=== PATIENT | female | born 1965 | race Caucasian/White ===

== ENCOUNTER 2017-02-21 15:05 | Emergency (ER) | payer BC ==
--- NOTE | 2017-02-21 15:16 | UC ---
Respiratory Complaint HPI - HPI Summary HPI Summary: 51 year old female presents with cough, chest congestion, and shortness of breath. - History of Current Complaint Stated Complaint: SHORTNESS OF BREATH Time Seen by Provider: 02/21/17 15:16 Hx Obtained From: Patient Onset/Duration: Sudden Onset Timing: Constant Severity Initially: Moderate Severity Currently: Moderate Character: Cough: Nonproductive Aggravating Factors: Deep Breaths Alleviating Factors: Bronchodilator - Allergies/Home Medications Allergies/Adverse Reactions: Allergies Allergy/AdvReac Type Severity Reaction Status Date / Time Cephalexin [From Keflex] Allergy Severe Anaphylatic Verified 02/21/17 15:17 Shock Home Medications: Home Medications Baclofen TAB* [Lioresal TAB*] 10 mg PO TID PRN 02/21/17 [History Confirmed 02/21] Dextromethorphan Polistirex [Robitussin 12 Hour Cough] 30 mg PO BID PRN [History Confirmed 02/21/17] Gabapentin CAP(*) [Neurontin 100 mg CAP(*)] 100 mg PO SEE INSTRUCTIONS 02/21/17 [History Confirmed 02/21/17] HYDROcodone/ACETAMIN 5-325 MG* [[place]ales 5-325 TAB*] 1 tab PO Q6H PRN 02/21/17 [ History Confirmed 02/21/17] celeCOXIB CAP* [Celebrex CAP*] 100 mg PO DAILY 02/21/17 [History Confirmed 02/21] PMH/Surg Hx/FS Hx/Imm Hx Previously Healthy: Yes Review of Systems Constitutional: Negative Skin: Negative Eyes: Negative ENT: Sore Throat, Nasal Discharge, Sinus Congestion, Sinus Pain/Tenderness Respiratory: Shortness Of Breath, Cough Cardiovascular: Negative Gastrointestinal: Negative Genitourinary: Negative Motor: Negative Neurovascular: Negative Musculoskeletal: Negative Neurological: Negative Psychological: Negative All Other Systems Reviewed And Are Negative: Yes Physical Exam Triage Information Reviewed: Yes Eye Exam: Normal ENT: Positive: Pharyngeal erythema, Nasal congestion, Nasal drainage Dental Exam: Normal Neck exam: Normal Neck: Positive: 1 Respiratory Exam: Normal Respiratory: Positive: Rhonchi, Wheezing Cardiovascular Exam: Normal Abdominal Exam: Normal Musculoskeletal Exam: Normal Neurological Exam: Normal Psychological Exam: Normal Skin Exam: Normal Respiratory Course/Dx - Differential Dx/Diagnosis Provider Diagnoses: bronchitis. sinusitis Discharge - Discharge Plan Condition: Stable Disposition: HOME Prescriptions: Albuterol HFA INHALER* [Ventolin HFA Inhaler*] 1 puff INH Q6H PRN #1 mdi PRN Reason: Wheezing Azithromyxin REESE (NF) [Z-Reese (Zithromax) 250 mg tabs #6] 2 tab PO .TODAY, THEN 1 DAILY #6 tab guaiFENesin/CODIEN 100MG-10MG* [Robitussin AC 100Mg-10Mg*] 5 ml PO Q8H PRN #120 ml MDD 15 ML PRN Reason: Cough predniSONE TAB* [Deltasone TAB*] 40 mg PO DAILY #10 tab Patient Education Materials: Acute Cough (ED), Wheezing (ED) Referrals: Dalila Darden MD [Primary Care Provider] -
[2017-02-21 15:24] VITALS: BP 147/72
--- NOTE | 2017-02-21 16:01 | RAD ---
INDICATION: Shortness of breath. Requisition includes history of "spontaneous pneumothorax x4" COMPARISON: None TECHNIQUE: PA and lateral views of the chest were obtained. FINDINGS: The heart and mediastinum are normal in size and contour. The left lung is grossly clear in the AP view. There is density along the inferior lateral right chest wall and right hemidiaphragm including blunting of the right costophrenic angle. The right lung is otherwise adequately aerated. There is no definite pneumothorax. There appears to be surgical material along the medial aspect of the right lung apex. Visualized bones are normal for the patient's age. There is no radiographic evidence of free air beneath the diaphragm IMPRESSION: DENSITY OBSCURING THE INFERIOR RIGHT LUNG BASE DESCRIBED ABOVE WITHOUT PRIOR CHEST X-RAYS TO COMMENT ON CHRONICITY. ETIOLOGIES COULD INCLUDE CHANGES RELATED TO PRIOR SURGERY, PLEURAL THICKENING OF ANOTHER ETIOLOGY OR PLEURAL EFFUSION. THERE IS NO DEFINITE PNEUMOTHORAX SEEN.
[2017-02-21] MEDS ORDERED: Albuterol/Ipratropium NEB.SOL* Albuterol 2.5 MG/Ipratropium 0.5 MG 3 ML INH ONE (16:07)
[2017-02-21] MEDS ORDERED: predniSONE TAB* 20 MG PO ONE (16:08)
== END 2017-02-21 16:43 | disposition home or self-care (01) ==
LOC: UCCORT 15:05
DX: J40 Bronchitis, not specified as acute or chronic (principal); J32.9 Chronic sinusitis, unspecified; Z88.1 Allergy status to other antibiotic agents
CPT/HCPCS: 71020; 93005; 99202; A9270-GY; G0463; J7512

== ENCOUNTER 2018-08-13 14:08 | Emergency (ER) | payer BC, OTHER ==
[2018-08-13] MEDS ORDERED: Famotidine TAB* 20 MG PO ONE (14:49)
[2018-08-13 14:50] VITALS: BP 143/90
[2018-08-13] MEDS ORDERED: predniSONE TAB* 20 MG PO ONE (14:50)
--- NOTE | 2018-08-13 15:06 | UC ---
Throat Pain/Nasal Piyush HPI - HPI Summary HPI Summary: Pt presents with c/o sudden onset of left facial cheek swelling that in painful that began last evening. Pt denies injury or recent dental work, trauma or concerns. Pt states that her facial swelling is improving since last evening but now she has "tingling feeling in lips". 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 Pt is concerned that she may have a sinus infection or an anaphylactic reaction Pt is sitting comfortably, denies difficulty swallowing or breathing. - History of Current Complaint Stated Complaint: SINUS,LT EAR PAIN Time Seen by Provider: 08/13/18 14:41 Hx Obtained From: Patient Hx Last Menstrual Period: uterine ablation ?: No Onset/Duration: Gradual Onset, Lasting Days, Still Present Severity: Moderate Pain Intensity: 7 Cough: None Associated Signs & Symptoms: Positive: Sinus Discomfort Related History: Seasonal Allergies - Epiglottits Risk Factors Epiglottis Risk Factors: Sudden Onset - Allergies/Home Medications Allergies/Adverse Reactions: Allergies Allergy/AdvReac Type Severity Reaction Status Date / Time MS Cephalexin [From Keflex] Allergy Severe Anaphylatic Verified 08/13/18 14:50 Shock Home Medications: Home Medications Cetirizine HCl [Zyrtec] 10 mg PO ONCE PRN 08/13/18 [History Confirmed 08/13/18] hydrOXYzine HCl [Hydroxyzine HCl] 1 - 2 tab PO DAILY PRN 08/13/18 [History Confirmed 08/13/18] PMH/Surg Hx/FS Hx/Imm Hx Previously Healthy: Yes - Surgical History Surgical History: Yes Surgery Procedure, Year, and Place: multiple chest tubes right side, left TKA, multiple knee surgeries right side, right shoulder reconstuction x2, back, and neck surgery - Family History Known Family History: Positive: Cardiac Disease - Social History Occupation: Employed Full-time Lives: With Family Alcohol Use: None Substance Use Type: Marijuana Substance Use Comment - Amount & Last Used: medical marijuana Smoking Status (MU): Never Smoked Tobacco Have You Smoked in the Last Year: No Review of Systems All Other Systems Reviewed And Are Negative: Yes Constitutional: Positive: Negative Skin: Positive: Negative Eyes: Positive: Negative ENT: Positive: Sinus Pain/Tenderness Respiratory: Positive: Negative Cardiovascular: Positive: Negative Gastrointestinal: Positive: Negative Genitourinary: Positive: Negative Motor: Positive: Negative Neurovascular: Positive: Negative Musculoskeletal: Positive: Negative Neurological: Positive: Negative Psychological: Positive: Negative Is Patient Immunocompromised?: No Physical Exam Triage Information Reviewed: Yes Appearance: Well-Appearing, Pain Distress Vital Signs: Initial Vital Signs Temp 98.8 F 08/13/18 14:42 Pulse 104 08/13/18 14:42 Resp 18 08/13/18 14:42 BP 143/90 08/13/18 14:42 Pulse Ox 97 08/13/18 14:42 Vital Signs Reviewed: Yes Eye Exam: Normal ENT: Positive: Sinus tenderness, Other - left facial cheek swelling, c/o tenderness with palpation Dental Exam: Normal Neck exam: Normal Respiratory Exam: Normal Cardiovascular Exam: Normal Musculoskeletal Exam: Normal Neurological Exam: Normal Psychological Exam: Normal Skin Exam: Normal Throat Pain/Nasal Course/Dx - Course Course Of Treatment: Pt was instructed to use EPI pen if concerned that she is having anaphylactic reaction and to call 911. Pt verbalized understanding and agreed to plan of care - Differential Dx/Diagnosis Differential Diagnosis/HQI/PQRI: Sinusitis, Other - anaphylactic reaction, dental abscess Provider Diagnosis: Sinusitis Discharge - Sign-Out/Discharge Documenting (check all that apply): Patient Departure All imaging exams completed and their final reports reviewed: No Studies - Discharge Plan Condition: Stable Disposition: HOME Prescriptions: DOXYcycline CAP(*) [DOXYcycline 100MG CAP(*)] 100 mg PO Q12H #20 cap predniSONE TAB* [Deltasone 10 MG TAB*] 30 mg PO DAILY #12 tab Patient Education Materials: Antihistamine (By mouth), Sinusitis (ED) Referrals: Diane Gardner [Primary Care Provider] - 4 Days Additional Instructions: Please follow up with your PCP in the next 4 days. If your symptoms do not improve or they worsen, you need to seek care at the closest emergency room. If you suspect that you are having an anaphylactic reaction you must use your EPI Pen and call 911. - Billing Disposition and Condition Condition: STABLE Disposition: Home
== END 2018-08-13 15:22 | disposition home or self-care (01) ==
LOC: UCCORT 14:08
DX: J32.9 Chronic sinusitis, unspecified (principal); Z88.1 Allergy status to other antibiotic agents
CPT/HCPCS: 99212; A9270-GY; G0463; J7512

== ENCOUNTER 2019-04-13 15:09 | Emergency (ER) | payer BC ==
--- NOTE | 2019-04-13 15:11 | UC ---
Hand/Wrist HPI - HPI Summary HPI Summary: 53 yo female presents with LEFT thumb injury. She tells me that 2 days ago she was lifting her small dog and her left thumb got caught in the harness and pulled/twisted. She thinks the base of the thumb is dislocated. She has been waiting for 2 days to see if it would "go back in" or improve, but it has not. Denies numbness or tingling. - History Of Current Complaint Stated Complaint: LT THUMB INJURY Time Seen by Provider: 04/13/19 15:11 Hx Obtained From: Patient Hx Last Menstrual Period: uterine ablation Onset/Duration: Sudden Onset Severity Initially: Moderate Severity Currently: Moderate Pain Intensity: 7 Pain Scale Used: 0-10 Numeric - Allergies/Home Medications Allergies/Adverse Reactions: Allergies Allergy/AdvReac Type Severity Reaction Status Date / Time cephalexin [From Keflex] Allergy Anaphylatic Verified 10/03/18 07:05 Shock Tetanus Vaccines and Toxoid Allergy See Comment Verified 04/13/19 15:18 Home Medications: Home Medications Amitriptyline TAB* [Elavil TAB*] 2 tab PO BEDTIME 04/13/19 [History Confirmed ] Morphine TAB (NF) [Morphine 30 MG TAB (NF)] 2 tab PO BEDTIME 04/13/19 [History Confirmed 04/13/19] PMH/Surg Hx/FS Hx/Imm Hx Psychological History: Anxiety - Surgical History Surgical History: Yes Surgery Procedure, Year, and Place: CSP - ANTERIOR APPROACH - REPAIR. LAMINECTOMY= LSP. TONILECTOMY. APPENDECTOMY. TRIGGERFINGER Lt THUMB. Rt THUMB - NERVE REPAIR. Lt KNEE - TOTAL. 9 TOTAL ON Rt - TOTAL OPEN & ARTHROSCOPICLY. Rt SHOULDER- 2 SURG. Rt LUNG - SURG CLIPS - THORACOTOMY - Family History Known Family History: Positive: Cardiac Disease - Social History Alcohol Use: None Substance Use Type: Marijuana Substance Use Comment - Amount & Last Used: medical marijuana Smoking Status (MU): Never Smoked Tobacco Have You Smoked in the Last Year: No Review of Systems All Other Systems Reviewed And Are Negative: No Constitutional: Positive: Negative Skin: Positive: Negative Respiratory: Positive: Negative Cardiovascular: Positive: Negative Neurovascular: Positive: Negative Musculoskeletal: Positive: Other: - Left thumb pain Neurological: Positive: Negative Psychological: Positive: Negative Physical Exam - Summary Physical Exam Summary: GENERAL: NAD. WDWN. No pain distress. SKIN: No rashes, sores, lesions, or open wounds. CHEST: No accessory muscle use. Breathing comfortably and in no distress. CV: Pulses intact radial and ulnar. Cap refill <2seconds MSK: LEFT THUMB: Bony prominence at dorsal MCP. Stuck in approx 30deg flexion at joint. NTTP. IP joint TTP and pain with movement. Pain with flexion and extension at MCP NEURO: Alert. Sensations intact hand and all fingers. PSYCH: Age appropriate behavior. Triage Information Reviewed: Yes Vital Signs: Vital Signs: Temp Pulse Resp BP Pulse Ox 97.8 F 102 16 121/80 98 04/13/19 15:21 04/13/19 15:21 04/13/19 15:21 04/13/19 15:21 04/13/19 15:21 Vital Signs Reviewed: Yes Diagnostics - Radiology Thumb XR Radiology Interpretation Completed By: Radiologist Summary of Radiographic Findings: REPORT AND IMPRESSION: #. Bone density appears decreased throughout. #. No cortical disruption or suspicious trabecular irregularity to suggest fracture. #. 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 #. Negative for subluxation or dislocation. #. Soft tissue swelling most prominent at the level of the metacarpal phalangeal and interphalangeal joints. Hand/Wrist Course/Dx - Course Course Of Treatment: XR as above. High suspicion for ligament/tendon injury. Discussed case with Dr. Kang of Orthopedics who also reviewed the XR images. He favors a tendon injury. Recommends thumb spica splint and f/u with Ortho hand on tuesday. Discussed with pt and she is agreeable with this. She was placed in a thumb spica splint and advised to RICE and f/u with Orthopedics on tuesday - Differential Dx/Diagnosis Provider Diagnosis: Injury of left thumb Discharge ED - Sign-Out/Discharge Documenting (check all that apply): Patient Departure All imaging exams completed and their final reports reviewed: Yes - Discharge Plan Condition: Stable Disposition: HOME Patient Education Materials: Finger Sprain (ED), Tendon Rupture (ED) Referrals: Diane Gardner [Primary Care Provider] - Ranjith Scott MD [Medical Doctor] - 04/16/19 Additional Instructions: If you develop a fever, shortness of breath, chest pain, new or worsening symptoms - please call your PCP or go to the ED immediately. Use the thumb splint as much as possible until you see Orthopedics I spoke to the Orthopedic doctor obiee [facility] [employer] and he recommends you be seen tuesday in their clinic. Please call Orthopedics at the number below to schedule an appointment for tuesday for further evaluation of your thumb - Billing Disposition and Condition Condition: STABLE Disposition: Home
--- OUTSIDE RECORDS SUMMARY | 2019-04-13 15:14 | XMS REPORT | Summary of Care ---
:1965 Author Organization [facility] Address [address] [place] [address] Care Team Providers Name Role Phone Diane Gardner NP Primary Care Provider Reason for Visit Reason Comments Dizziness Emesis Encounter Details Date Type Department Care Team Description 03/27/2019 Emergency EMERGENCY DEPARTMENT Myles Martins R, Nonintractable headache, unspecified chronicity [address] [facility] pattern, [place] [address] [place], [place] headache type (Primary [phone] Dx) [phone] Allergies Active Allergy Reactions Severity Noted Date Comments Amoxicillin-Pot Diarrhea, Nausea Only 03/10/2015 Other reaction(s): GI Clavulanate UPSET Despite probiotics and taking with food Cephalexin Anaphylaxis, Hives, High 01/13/2006 Other reaction(s): Rash THROAT SWELLING " tongue swells " Has tolerated amoxicillin in the past. " tongue swells " Chocolate 09/29/2007 Other reaction(s): Headache, Headache Hydromorphone Nausea And Vomiting High 03/24/2008 Meperidine Nausea And Vomiting High 02/26/2015 severe Meperidine Hcl Nausea And Vomiting, High 12/30/2006 Hallucinations Other (See Comments) Other reaction(s): HALLUCINATIONS, VOMITING severe Morphine Sulfate Nausea And Vomiting Medium 03/24/2008 Sulfa Antibiotics Anaphylaxis High 10/11/2018 Sulfasalazine 04/18/2014 Other reaction(s): GI ULCER, Other (See Comments) Other reaction(s): GI ULCER Other reaction(s): GI ULCER Tetanus Toxoid 01/13/2006 Other reaction(s): OTHER, Other (See Comments) " elbows,knees ,and jaw locked " Jaw lock, fever " elbows,knees ,and jaw locked " Tetanus Toxoids 10/11/2018 documented as of this encounter (statuses as of 03/27/2019) Medications Medication Sig Dispensed Refills Start Date End Date Status gabapentin (NEURONTIN) Take 300 mg by 2 10/01/2018 Active 300 MG capsule mouth Three times daily baclofen (LIORESAL) 10 Take 10 mg by 5 09/21/2018 Active MG tablet mouth Two Times Daily HYDROcodone-acetaminop Take 1 tablet by 0 12/02/2017 Active hen (VICODIN) 10-325 mouth as needed MG per tablet morphine (ARLENE) 30 Take 1 capsule 0 10/06/2018 Active MG 24 hr capsule by mouth daily omeprazole (PRILOSEC) Take 20 mg by 1 07/11/2018 Active 20 MG capsule mouth daily meclizine (ANTIVERT) Take 2 tablets 0 10/11/2018 Active 12.5 MG tablet by mouth Two Times Daily alprazolam (XANAX) 0.5 Take 1 mg by 0 08/28/2018 Active MG tablet mouth as needed BISACODYL 5 MG EC Take 5 mg by 0 10/27/2017 Active tablet mouth daily escitalopram (LEXAPRO) Take 10 mg by 3 10/04/2018 Active 10 MG tablet mouth daily hydrOXYzine (ATARAX) Take 1 tablet by 0 09/20/2018 Active 25 MG tablet mouth as needed Misc Natural Products Take by mouth 0 Active (OSTEO BI-FLEX JOINT SHIELD PO) amitriptyline (ELAVIL) Take 2 tablets 60 tablet 11 03/06/2019 03/04/2020 Active 10 MG by mouth nightly tabletIndications: Take 1 tab for Status migrainosus 1week followed by 2 tabs raNITIdine HCl 150 MG Take 150 mg by 0 Active Oral Tablet (ZANTAC) mouth Two Times Daily documented as of this encounter (statuses as of 03/27/2019) Active Problems No known active problemsdocumented as of this encounter (statuses as of 2018) Social History Tobacco Use Types Packs/Day Years Used Date Former Smoker 0 Smokeless Tobacco: Never Used Alcohol Use Drinks/Week oz/Week Comments Yes 3 Cans of beer 3.0 occassionally Sex Assigned at Date Recorded Not on file Job Start Date Occupation Industry Not on file Not on file Not on file Travel History Travel Start Travel End No recent travel history available. documented as of this encounter Last Filed Vital Signs Vital Sign Reading Time Taken Comments Blood Pressure 152/82 03/27/2019 9:36 PM EST Pulse 92 03/27/2019 9:36 PM EST Temperature 36.5 03/27/2019 9:36 PM EST C (97.7 F) Respiratory Rate 16 03/27/2019 9:36 PM EST Oxygen Saturation 95% 03/27/2019 9:36 PM EST Inhaled Oxygen Concentration - - Weight 70.3 kg (155 lb) 03/27/2019 3:37 PM EST Height 177.8 cm (5' 10") 03/27/2019 3:37 PM EST Body Mass Index 22.24 03/27/2019 3:37 PM EST documented in this encounter Discharge Instructions AttachmentsThe following attachments cannot be sent through Care Everywhere.Headaches, Self-Care for (Burmese)documented in this encounter Plan of Treatment Date Type Specialty Care Team Description 05/03/2019 Office Visit Neurology Chrissie Kearns MD [address] [facility] 4th Floor [address] [place] [address] Health Maintenance Due Date Last Done Comments Hepatitis C Screening (B. 1965 [id number]) MMR Vaccines (1 of 1 - Standard 1964 series) DTaP,Tdap,and Td Vaccines (1 - 1970 Tdap) HIV Screening 1976 Cervical Cancer Screening 5 years 1984 Breast Cancer Screening 2 years 2013 Colon Cancer Screening 10 yrs 2013 Influenza Vaccine 02/06/2019 Pneumococcal Vaccine: 65+ Years (1 2028 of 2 - PCV13) HIB Vaccines Aged Out No longer eligible based on patient's age to complete this topic Hepatitis A Vaccines Aged Out No longer eligible based on patient's age to complete this topic Hepatitis B Vaccines Aged Out No longer eligible based on patient's age to complete this topic IPV Vaccines Aged Out No longer eligible based on patient's age to complete this topic Pneumococcal Vaccine: Pediatrics Aged Out No longer eligible based on (0 to 5 Years) and At-Risk patient's age to complete this Patients (6 to 64 Years) topic Varicella Vaccines Aged Out No longer eligible based on patient's age to complete this topic documented as of this encounter Procedures Procedure Name Priority Date/Time Associated Comments Diagnosis BASIC METABOLIC PANEL STAT 03/27/2019 6:43 Results for this PM EST procedure are in the results section. POCT ISTAT BHCG Routine 03/27/2019 5:13 Results for this PM EST procedure are in the results section. URINALYSIS WITH STAT 03/27/2019 5:13 Results for this MICROSCOPIC PM EST procedure are in the results section. CBC AND DIFFERENTIAL STAT 03/27/2019 5:13 Results for this PM EST procedure are in the results section. BASIC METABOLIC PANEL STAT 03/27/2019 5:13 Results for this PM EST procedure are in the results section. documented in this encounter Results Basic Metabolic Panel (03/27/2019 6:43 PM EST) Bicarbonate 24 22 - 29 mmol/L [facility] Chloride 91 (L) 98 - 107 mmol/L [facility] Creatinine 0.48 (L) 0.50 - 0.90 [facility] mg/dL [facility] Glucose 107 70 - 140 mg/dL [facility] Potassium 3.4 3.4 - 5.1 [facility] mmol/L [facility] Sodium 130 (L) 136 - 145 [facility] mmol/L [facility] Blood Urea Nitrogen 2 (L) 6 - 20 mg/dL [facility] Anion Gap 15 8 - 15 mmol/L [facility] Osmolality, Rubén 266 (L) 275 - 300 [facility] mosm/kg [facility] BUN/Cre Ratio 5 [facility] Calcium 8.3 (L) 8.6 - 10.0 [facility] mg/dL [facility] GFR Non >90 >60 [facility] [place] 2008 CDK-EPI mL/min/1.73m2 [facility] GFR >90 >60 [facility] 2009 CKD-EPI mL/min/1.73m2 [facility] Specimen Plasma Performing Organization Address City/State/Zipcode Phone Number [facility] [address] [place] [address] [phone] [facility] [address] [place] [address] Pathology POCT i-STAT BHCG (03/27/2019 5:13 PM EST) i-STAT BHCG <5 <5 [IU]/L [facility] Comment: Hospital POC (NOTE) Levels between 5 and 25 [IU]/L may indicate early and should be repeated after 48 hours. Specimen Whole Blood Performing Organization Address [facility] Phone Number POINT OF CARE TEST [address] [place] [address] [facility] Hospital POC [address] [place] [address] Urinalysis with microscopic (03/27/2019 5:13 PM EST) Color Colorless [facility] Clarity Clear [facility] Specific Mcandrews 1.002 (L) 1.003 - 1.030 [facility] PH Urine 7.0 5.0 - 8.0 [facility] Total Protein UA Negative Negative mg/dL [facility] Glucose UA Negative Negative mg/dL [facility] Ketone Urine Negative Negative mg/dL [facility] Bilirubin Negative Negative [facility] Hemoglobin, Urine Negative Negative [facility] Leukocyte Esterase 1+ (A) Negative [place]/uL [facility] Nitrite Negative Negative [facility] WBC <1 0 - 5 /HPF [facility] RBC <1 0 - 3 /HPF [facility] Specimen Urine Performing Organization Address City/[facility] Phone Number [facility] [address] [place] [address] [facility] [address] [place] [address] Pathology CBC and Differential (03/27/2019 5:13 PM EST) White Blood Cell 3.8 (L) 4 - 10 [facility] 10*3/uL [facility] Red Blood Cell 4.08 (L) 4.1 - 5.3 [facility] 10*6/uL [facility] Hemoglobin 12.8 11.5 - 15.5 [facility] g/dL [facility] Hematocrit 38.1 36 - 45 % [facility] Mean Cell Volume 93.4 80 - 96 fL [facility] Mean Cell Hemoglobin 31.3 27 - 33 pg [facility] Mean Cell Hgb Conc 33.6 32.0 - 36.0 [facility] g/dL [facility] Red Cell Dist Width 12.1 11.5 - 14.5 % [facility] Platelet Count 207 150 - 400 [facility] 10*3/uL [facility] Differential Type Automated Diff [facility] Neutrophil 57 % [facility] Lymphocyte 27 % [facility] Monocyte 9 % [facility] Eosinophil 6 % [facility] Basophil 1 % [facility] Abs Neutrophil 2.20 1.8 - 7.0 [facility] 10*3/uL [facility] Abs Lymphocyte 1.05 (L) 1.2 - 4.0 [facility] 10*3/uL [facility] Abs Monocyte 0.33 0 - 0.8 [facility] 10*3/uL [facility] Abs Eosinophil 0.22 0 - 0.5 [facility] 10*3/uL [facility] Abs Basophil 0.05 0 - 0.2 [facility] 10*3/uL [facility] Nucleated Red Blood 0 0 - 0 [facility] Cells /100{WBCs} [facility] Pathology Specimen EDTA Whole Blood Performing Organization Address City/State/[place] Phone Number [facility] [address] [place] [address] [phone] [facility] [address] [place] [address] Pathology Basic Metabolic Panel (03/27/2019 5:13 PM EST) Bicarbonate 26 22 - 29 mmol/L [facility] Chloride 81 (L) 98 - 107 mmol/L [facility] Creatinine 0.56 0.50 - 0.90 [facility] mg/dL [facility] Glucose 107 70 - 140 mg/dL [facility] Potassium 3.2 (L) 3.4 - 5.1 [facility] mmol/L [facility] Sodium 121 (L) 136 - 145 [facility] mmol/L [facility] Blood Urea Nitrogen 3 (L) 6 - 20 mg/dL [facility] Anion Gap 14 8 - 15 mmol/L [facility] Osmolality, Rubén 249 (L) 275 - 300 [facility] mosm/kg [facility] BUN/Cre Ratio 5 [facility] Calcium 9.5 8.6 - 10.0 [facility] mg/dL [facility] GFR Non >90 >60 [facility] [place] 2008 CDK-EPI mL/min/1.73m2 [facility] GFR >90 >60 [facility] 2008 CKD-EPI mL/min/1.73m2 [facility] Specimen Plasma Performing Organization Address City/State/Zipcode Phone Number [facility] [address] [place] [address] [facility] [address] [place] [address] Pathology documented in this encounter Visit Diagnoses Diagnosis Nonintractable headache, unspecified chronicity pattern, unspecified headache type - Primary documented in this encounter Administered Medications Medication Order MAR Action Action Date Dose Rate Site ketorolac (TORADOL) Given by IV push 03/27/2019 5:15 PM EST 15 mg injection 15 mg 15 mg, Intravenous, Once, 03/27/19 at 1700, For 1 dose magnesium sulfate infusion 2 g/50 New 03/27/2019 5:43 PM EST 16 mEq 200 mL/hr mL (premix) 16 mEq, Intravenous, Once, 03/27/19 at 1700, For 1 dose, 8 mEq = 1 g magnesium sulfate, prochlorperazine (COMPAZINE) injection 10 New 03/27/2019 5:15 PM EST 10 mg mg 10 mg, Intravenous, Once, e 03/27/19 at 1700, For 1 dose sodium chloride 0.9 % bolus 1,000 mL New 03/27/2019 5:15 PM EST 1,000 mLs 1,000 mL, Intravenous, Once, e 03/27/19 at 1700, For 1 dose sodium chloride 0.9 % bolus 1,000 mL New 03/27/2019 8:54 PM EST 1,000 mLs 1,000 mL, Intravenous, Once, Tue03/27/19 at 2100, For 1 dose documented in this encounter
[2019-04-13] MEDS ORDERED: Lidocaine 2% PF * 5 ML VIAL INJ ONE (15:20)
[2019-04-13 15:25] VITALS: BP 121/80
== END 2019-04-13 16:09 | disposition home or self-care (01) ==
LOC: UCCORT 15:09
DX: S69.92XA Unspecified injury of left wrist, hand and finger(s), initial encounter (principal); M19.042 Primary osteoarthritis, left hand; M79.89 Other specified soft tissue disorders; Z79.899 Other long term (current) drug therapy; Z88.1 Allergy status to other antibiotic agents; Z88.7 Allergy status to serum and vaccine; X50.0XXA Overexertion from strenuous movement or load, initial encounter; Y92.9 Unspecified place or not applicable; F41.9 Anxiety disorder, unspecified
CPT/HCPCS: 99212; G0463

== ENCOUNTER 2019-04-30 09:51 | Day surgery (SDC) | payer BC ==
[~2019-04-30 09:51] MED LIST: Acetaminophen TAB* 325 MG PO ONE; Buffered Lidocaine 1% SYRIN* 1 ML/SYRINGE INTRADERM ONE; Famotidine IV* 10 MG/ML 2 ML (20 mg) IV ONE; Lactated Ringers 1000 ML Bag* 1,000 ML IV SCH
[2019-04-30] MEDS ORDERED: Acetaminophen TAB* 325 MG ONE (10:51)
[2019-04-30] MEDS ORDERED: ceFAZolin 2 GM PREMIX in ORs 2 GM/50 ML BAG ONE (10:52)
[2019-04-30] MEDS ORDERED: Famotidine IV* 10 MG/ML 2 ML (20 mg) ONE (10:52)
[2019-04-30] MEDS ORDERED: Lidocaine 2% PF * 5 ML VIAL ONE (12:22)
[2019-04-30] MEDS ORDERED: fentaNYL* 50 MCG/ML 2 ML VIAL (100 MCG VIAL) ONE (12:22)
[2019-04-30] MEDS ORDERED: Midazolam* 1 MG/ML 2 ML VIAL (2 MG) ONE (12:22)
[2019-04-30] MEDS ORDERED: Bupivacaine 0.25% SDV* 30 ML ONE (12:24)
[2019-04-30] MEDS ORDERED: Ondansetron INJ* 2 MG/ML VIAL ONE (12:48)
[2019-04-30] MEDS ORDERED: Dexamethasone IV* 4 MG/ML 1 ML (4 MG) ONE (12:48)
[2019-04-30] MEDS ORDERED: HYDROmorphone INJ1* 1 MG/ML SYRINGE ONE ×2 (13:07→14:13)
[2019-04-30] MEDS ORDERED: diPHENhydraMINE IV* 50 MG/ML 1 ml VIAL (BENADRYL) IV PRN (13:25)
[2019-04-30] MEDS ORDERED: Naloxone* 0.4 MG/ML 1 ML VIAL IV PRN (13:25)
[2019-04-30] MEDS ORDERED: PROCHLORPERAZINE INJ 5 MG/ML 2 ML VIAL IV PRN (13:25)
[2019-04-30] MEDS ORDERED: oxyCODONE TAB* 5 MG TAB PO PRN (13:25)
[2019-04-30] MEDS ORDERED: Ondansetron INJ* 2 MG/ML VIAL IV PRN (13:25)
[2019-04-30] MEDS: HYDROmorphone INJ1* 1 MG/ML SYRINGE IV PRN ×3 (14:15→14:57)
[2019-04-30] MEDS ORDERED: oxyCODONE TAB* 5 MG TAB ONE (14:52)
[2019-04-30 15:20] VITALS: BP 114/76
--- NOTE | 2019-05-01 04:16 | OP ---
OPERATIVE REPORT: DATE OF OPERATION: 04/30/19 - SDS DATE OF : 61 SURGEON: Ranjith Scott MD DOG SHOW JUDGE: FELIPE Starkey An assistant news director was needed for the entirety of the procedure to aid in positioning of the arm and retraction. ANESTHESIOLOGIST: Dr. Farias. ANESTHESIA: General. PRE-OPERATIVE DIAGNOSIS: Left thumb ulnar collateral ligament complete tear with instability at the metacarpophalangeal joint. POST-OPERATIVE DIAGNOSIS: Left thumb ulnar collateral ligament complete tear with instability at the metacarpophalangeal joint. OPERATIVE PROCEDURE: Left thumb metacarpophalangeal joint ulnar collateral ligament repair with local tissue. INDICATIONS: Ms. Teran has the aforementioned ligament tear. We talked about treatment options, risks and benefits. She wants to proceed with surgery, as it was unstable soon about [id number]-[id number]-a-half weeks since the tear. ESTIMATED BLOOD LOSS: 2 mL. COMPLICATIONS: None. FINDINGS: See above and below. DESCRIPTION OF PROCEDURE: Ms. Teran was seen in the preoperative holding area. The correct side, site, and procedure were identified. We came back to the operating room. The arm was prepped and draped in the usual fashion and time-out was performed. The arm was exsanguinated with the Esmarch and the tourniquet was inflated. I made a lazy S incision over the ulnar aspect of the MCP joint. Dissection was carried down. Full-thickness flaps were raised off the adductor aponeurosis. The adductor aponeurosis was split longitudinally. The ligament was seen to where it had torn off the proximal phalanx and assumed a very vertical position , was attached to the volar plate. I went ahead and released it, rotated it back in the location. I cleaned up the bone on the proximal phalanx with the curette and rongeur, so it was bleeding just a little bit. I then placed 2 mini Mitek suture anchors in the footprint of the ligament. These were used to sew the ligament back down to the bone for nice fit. I then ran the 2-0 Ethibond suture up and down the ligament to secure the repair. One limb of the 2 Ethibond suture was used to sew the inferior aspect of the ligament back to the volar plate. A 3-0 Ethibond suture was used to place a couple of figure-of- eight 3-0 Ethibond sutures to secure the periphery of the ligament. At this point, everything was looking good. There was complete stability restored. The wound was irrigated out. The aponeurosis was repaired with 4-0 PDS suture. Skin was closed with 4-0 nylon suture. Marcaine 0.25% had been applied. A thumb spica splint was applied out to the tip of the thumb. She was taken to the recovery room in stable condition. [id number]/[facility] #: [id number] [facility]
== END 2019-04-30 15:58 | disposition home or self-care (01) ==
LOC: OR 09:51
PROVIDERS: ATTEND Orthopaedic Surgery Hand Surgery
DX: S63.642A Sprain of metacarpophalangeal joint of left thumb, initial encounter (principal); Z87.891 Personal history of nicotine dependence; X50.0XXA Overexertion from strenuous movement or load, initial encounter; Y93.89 Activity, other specified; Y92.9 Unspecified place or not applicable; M19.90 Unspecified osteoarthritis, unspecified site; F41.9 Anxiety disorder, unspecified; K21.9 Gastro-esophageal reflux disease without esophagitis; G89.29 Other chronic pain
CPT/HCPCS: A9270-GY; C1713; J0690; J1100; J1170; J2250; J2405; J3010; J3490